=== PATIENT | female | born 1945 | race Caucasian/White ===

== ENCOUNTER 2017-06-10 00:15 | Observation (INO) | payer MEDICARE, OTHER ==
[2017-06-10] MEDS ORDERED: Vistaril 50 MG/ML IM ONE ×2 (00:40→00:45)
--- NOTE | 2017-06-10 00:49 | ERPHSYRPT ---
- History of Present Illness Time Seen by Provider: 06/10/17 00:22 Source: patient Patient Subjective Stated Complaint: Pt reports that she was line dancing tonight and started experiencing nausea approx 1999. Pt reports that approx 2129 she started experiencing a numbness feeling in her left jaw that went down her left arm. Denies chest pain or shortness of breath. Reports that she had some NTG at home so she took one and it relieved the numb feeling. Pt denies numbness or tingling at present. Triage Nursing Assessment: Pt alert, oriented, answers all questions appropriately. Skin pink, warm, dry. Resps non-labored. Pt ambulatory to tx room , steady gait noted. EKG at triage - sinus rhythm. Physician History: CC: tingling Hx: 72 y/o patient of Dr Yannick Peguero. She was doing her normal line dancing tonite and had unusual nausea start around 8PM. She felt poorly and was a little anxious. At home around 9:30 she reports tingling in left upper chest, neck and shoulder to her left arm and later to her left leg. No pain. No discomfort. No cough. No shortness of breath. No fever or chills. She has no hx of heart disease. She had prior normal test for vascular occusion. Timing/Duration: today Allergies/Adverse Reactions: budesonide [From Symbicort] Allergy (Intermediate, Verified 06/10/17 00:35) Swelling of Face formoterol [From Symbicort] Allergy (Intermediate, Verified 06/10/17 00:35) Swelling of Face Penicillins Allergy (Intermediate, Verified 06/10/17 00:35) Home Medications: Albuterol Sulfate [Ventolin Hfa] 18 gm IH DAILY 06/10/17 [History] Umeclidinium Brm/Vilanterol Tr [Anoro Ellipta 62.5-25 Mcg INH] 1 each IH DAILY 06/10/17 [History] Hx Influenza Vaccination/Date Given: Yes Hx Pneumococcal Vaccination/Date Given: Yes Immunizations Up to Date: Yes - Review of Systems Constitutional: Malaise, No Fever, No Chills Eyes: No Symptoms Ears, Nose, & Throat: No Symptoms Respiratory: No Cough, No Dyspnea Cardiac: No Chest Pain, No Edema Abdominal/Gastrointestinal: Nausea, No Abdominal Pain, No Vomiting, No Diarrhea Genitourinary Symptoms: No Symptoms Musculoskeletal: No Symptoms Skin: No Rash Neurological: Parasthesia, No Focal Weakness, No Headache All Other Systems: Reviewed and Negative - Past Medical History Pertinent Past Medical History: Yes Cardiac History: Other Respiratory History: Asthma, COPD Other Medical History: mitral valve prolapse - Past Surgical History Past Surgical History: Yes Gastrointestinal: Appendectomy, Hernia Repair Female Surgical History: Hysterectomy, Tubal Ligation - Social History Smoking Status: Never smoker Exposure to second hand smoke: No Drug Use: none Patient Lives Alone: Yes - Female History Hx Now: No - Nursing Vital Signs Nursing Vital Signs: Initial Vital Signs Temperature 98.0 F 06/10/17 00:30 Pulse Rate 77 06/10/17 00:30 Respiratory Rate 16 06/10/17 00:30 Blood Pressure 185/91 06/10/17 00:30 O2 Sat by Pulse Oximetry 98 06/10/17 00:30 Pain Scale Pain Intensity 0 - Physical Exam General Appearance: alert Eye Exam: PERRL/EOMI Ears, Nose, Throat Exam: normal ENT inspection, moist mucous membranes Neck Exam: normal inspection, non-tender, supple Respiratory Exam: normal breath sounds, lungs clear Cardiovascular Exam: regular rate/rhythm, No murmur Gastrointestinal/Abdomen Exam: soft, No tenderness, No distention, No mass, No guarding Back Exam: normal inspection Extremity Exam: normal inspection, normal range of motion Neurologic Exam: alert, oriented x 3, cooperative, instructor physical II-XII nml as tested, sensation nml, No motor deficits Skin Exam: warm, dry, No rash SpO2 Interpretation: normal SpO2: 98 Oxygen Delivery: Room Air - Course Nursing assessment & vital signs reviewed: Yes EKG Interpreted by Me: RATE (83), Sinus Rhythm, NORMAL AXIS, NORMAL INTERVALS ( QTc 452), NORMAL QRS, NORMAL ST-T - Radiology Exams cxr X-ray Interpretation: Interpreted by me (COPD), No Pneumonia, Nml Mediastinum - CT Exams head CT Interpretation: Negative, Tele-radiologist Report, SVID Ordered Tests: Active Orders 24 hr Category Date Time Status EKG-ER Only STAT Care 06/10/17 00:39 Active IV Insertion STAT Care 06/10/17 00:39 Active NPO (ED) STAT Care 06/10/17 00:39 Active CHEST 1 VIEW (PORTABLE) Stat Exams 06/10/17 00:40 Taken HEAD WITHOUT CONTRAST [CT] Stat Exams 06/10/17 00:40 Ordered CBC W DIFF Stat Lab 06/10/17 00:45 Completed CMP Stat Lab 06/10/17 00:45 Completed PROTIME WITH INR Stat Lab 06/10/17 00:45 Completed PTT Stat Lab 06/10/17 00:45 Completed TROPONIN Q3H Lab 06/10/17 00:45 Completed TROPONIN Q3H Lab 06/10/17 03:45 Ordered TROPONIN Q3H Lab 06/10/17 06:45 Ordered TROPONIN Q3H Lab 06/10/17 09:45 Ordered TROPONIN Q3H Lab 06/10/17 12:45 Ordered Medication Summary Discontinued Medications Generic Name Dose Route Start Last Admin Trade Name Freq PRN Reason Stop Dose Admin Aspirin 162 mg 06/10/17 01:26 06/10/17 01:36 Baby Aspirin 81 Mg Chew PO 06/10/17 01:27 162 mg STAT ONE Administration Hydroxyzine HCl 25 mg 06/10/17 00:40 06/10/17 00:47 Vistaril 50 Mg/Ml IM 06/10/17 00:41 25 mg STAT ONE Administration Hydroxyzine HCl Confirm 06/10/17 00:45 Vistaril 50 Mg/Ml Administered 06/10/17 00:46 Dose 50 mg IM .[employer]-MED ONE Lab/Rad Data: Laboratory Result Diagrams 06/10/17 00:45 06/10/17 00:45 Laboratory Results 06/10/17 06/10/17 06/10/17 Range/Units 00:45 00:45 00:45 WBC (4.0-10.5) K/mm3 RBC (4.1-5.4) M/mm3 Hgb (12.0-16.0) gm/dl Hct (35-47) % MCV (78-100) fl MCH (26-32) pg MCHC (32-36) g/dl RDW (11.5-14.0) % Plt Count (150-450) K/mm3 MPV (6-9.5) fl Gran % (36.0-66.0) % Lymphocytes % (24.0-44.0) % Monocytes % (0.0-12.0) % Eosinophils % (0.00-5.0) % Basophils % (0.0-0.4) % Basophils # (0-0.4) INR 0.92 (0.8-3.0) APTT 29.5 (25.3-37.0) SECONDS Sodium 141 (136-145) mEq/L Potassium 4.0 (3.5-5.1) mEq/L Chloride 103 (98-107) mEq/L Carbon Dioxide 29.5 (21-32) mEq/L Anion Gap 12.2 (5-15) MEQ/L BUN 13 (9-20) mg/dL Creatinine 0.98 (0.55-1.30) mg/dl Estimated GFR 60 ML/MIN Glucose 104 (70-110) MG/DL Calcium 9.8 (8.5-10.1) mg/dL Total Bilirubin 0.40 (0.2-1.0) mg/dL AST 18 (15-37) U/L ALT 20 (12-78) U/L Alkaline Phosphatase 70 (46-116) U/L Troponin I < 0.017 (0.000-0.056) ng/ml Serum Total Protein 6.8 (6.4-8.2) gm/dL Albumin 3.8 (3.4-5.0) g/dL 06/10/17 Range/Units 00:45 WBC 7.3 (4.0-10.5) K/mm3 RBC 4.19 (4.1-5.4) M/mm3 Hgb 13.0 (12.0-16.0) gm/dl Hct 41.0 (35-47) % MCV 97.9 (78-100) fl MCH 31.0 (26-32) pg MCHC 31.7 L (32-36) g/dl RDW 14.2 H (11.5-14.0) % Plt Count 251 (150-450) K/mm3 MPV 9.7 H (6-9.5) fl Gran % 61.0 (36.0-66.0) % Lymphocytes % 27.0 (24.0-44.0) % Monocytes % 10.1 (0.0-12.0) % Eosinophils % 1.5 (0.00-5.0) % Basophils % 0.4 (0.0-0.4) % Basophils # 0.03 (0-0.4) INR (0.8-3.0) APTT (25.3-37.0) SECONDS Sodium (136-145) mEq/L Potassium (3.5-5.1) mEq/L Chloride (98-107) mEq/L Carbon Dioxide (21-32) mEq/L Anion Gap (5-15) MEQ/L BUN (9-20) mg/dL Creatinine (0.55-1.30) mg/dl Estimated GFR ML/MIN Glucose (70-110) MG/DL Calcium (8.5-10.1) mg/dL Total Bilirubin (0.2-1.0) mg/dL AST (15-37) U/L ALT (12-78) U/L Alkaline Phosphatase (46-116) U/L Troponin I (0.000-0.056) ng/ml Serum Total Protein (6.4-8.2) gm/dL Albumin (3.4-5.0) g/dL - Progress Progress Note: 06/10/17 00:49 Pt reports tingling and numbness but she took NTG at home worried about her heart. Symptoms more concerning for cardiac but she did have some tingling in her leg. Will get head CT to rule out ICH. Will proceed with cardiac workup. 06/10/17 01:43 Pt improved with vistaril. ASA given. NIH score 0. She keeps rubbing left upper chest. She seemed uncomfortable. Denies pain. She lives alone and drove herself here. These symptoms began with exertion during line dance. Called Dr Jackson for Tele observation for serial troponins. Discussed with : Manuel Will see patient in: hospital (observation) Counseled pt/family regarding: lab results, diagnosis, need for follow-up, rad results - Departure Time of Disposition: 01:45 Departure Disposition: Observation (Tele) Clinical Impression: Chest pain, rule out acute myocardial infarction Condition: Stable Critical Care Time: No
[2017-06-10 00:56] LABS: BASOPHIL % 0.4 % (0.0-0.4); Eosinophil % 1.5 % (0.00-5.0); Mean Cell Volume 97.9 fl (78-100); Mean Platelet Volume 9.7 fl (6-9.5); Monocytes % 10.1 % (0.0-12.0); Platelet Count 251 K/mm3 (150-450); Red Blood Count 4.19 M/mm3 (4.1-5.4); Red Cell Distribution Width 14.2 % (11.5-14.0); White Blood Count 7.3 K/mm3 (4.0-10.5)
[2017-06-10 01:16] LABS: INR 0.92 (0.8-3.0); PROTIME 10.2 SECONDS (9.95-12.35)
[2017-06-10 01:18] LABS: ALBUMIN 3.8 g/dL (3.4-5.0); ANION GAP 12.2 MEQ/L (5-15); BILIRUBIN,TOTAL 0.4 mg/dL (0.2-1.0); Carbon Dioxide 29.5 mEq/L (21-32); PTT 29.5 SECONDS (25.3-37.0); Total Protein 6.8 gm/dL (6.4-8.2)
[2017-06-10] MEDS ORDERED: BABY ASPIRIN 81 MG CHEW PO ONE (01:26)
[2017-06-10] MEDS ORDERED: PROVENTIL 2.5 MG/3 ML NEB IH PRN (02:12)
[2017-06-10] MEDS ORDERED: TYLENOL 325 MG PO PRN (02:12)
[2017-06-10] MEDS ORDERED: PROVENTIL COMMON CANISTER IH PRN (05:00)
[2017-06-10] MEDS ORDERED: BABY ASPIRIN 81 MG CHEW ONE (06:44)
--- NOTE | 2017-06-10 09:30 | XRAY ---
Indication: Numbness. Left arm and jaw tingling. Comparison: None Portable chest hyperinflated and clear. Heart is not enlarged. Bony thorax intact with mild osteopenia and degenerative changes. Impression: Nonacute hyperinflated chest.
[2017-06-10] MEDS ORDERED: MEDICATION INTERVENTION MC PRN (09:58)
[2017-06-10] MEDS ORDERED: NON-FORMULARY ITEM (Umeclidinium Brm/Vilanterol Tr [Anoro Ellipta 62.5-25 Mcg Inh] 1 EACH) IH SCH (10:00)
[2017-06-10 11:44] VITALS: BP 121/58; PULSE 69; O2SAT 94
--- NOTE | 2017-06-10 14:00 | PCM.DCORD ---
- Discharge Discharge Date: 06/10/17 Disposition: Home, Self-Care Condition: Good Prescriptions: New Aspirin EC 81 mg [Ecotrin 81 mg] 81 mg PO DAILY #30 Continue Umeclidinium Brm/Vilanterol Tr [Anoro Ellipta 62.5-25 Mcg INH] 1 each IH DAILY Albuterol Sulfate [Ventolin Hfa] 18 gm IH DAILY Follow up with: AURELIA RAGLAND [NON-STAFF PHY W/O PRIVILEGES] - 1 Week
--- NOTE | 2017-06-11 10:03 | SSS ---
ADMISSION DIAGNOSES: 1) Chest pain. 2) Left-sided tingling and numbness in her arm and leg. DISCHARGE DIAGNOSES: 1) CHEST PAIN. 2) LEFT-SIDED TINGLING AND NUMBNESS IN HER ARM AND LEG. HISTORY OF PRESENT ILLNESS: This is a 72 year old patient of Dr. Peguero'paradise who presented to the emergency department. She stated that when she was line dancing the night before she had nausea and then felt some tingling on her left jaw and arm and then some in her left leg as well. She reported that she took a Nitro at home. She said she had this left over from years ago from when she was diagnosed with mitral valve prolapse and the Nitro helped but then she continued to have some problems so she decided to come to the emergency department. 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 She reports that she had a cough and she reports this morning she is feeling better and would like to go home. REVIEW OF SYSTEMS: No dyspnea. No abdominal pain. No lower extremity edema. No fever. PAST MEDICAL HISTORY: Mitral valve prolapse, asthma, chronic obstructive pulmonary disease. She sees Dr. Ruiz for chronic obstructive pulmonary disease. She is a lifetime nonsmoker so she is not sure why she has this. PAST SURGICAL HISTORY: She had cataracts removed, tubal ligation, hysterectomy, umbilical hernia repair, appendectomy, bladder surgery. MEDICATIONS: Anoro 1 puff daily, Albuterol 2 puffs every four hours as needed. ALLERGIES: BUDESONIDE, PENICILLIN, FORMOTEROL. SOCIAL HISTORY: She lives alone. No tobacco use. No alcohol use. FAMILY HISTORY: Her mother's side of the family had coronary artery disease and she thinks her father from a stroke. PHYSICAL EXAMINATION: VITAL SIGNS: Temperature current 98.1F, temperature max 98.2F, heart rate 69 to 77, respiratory rate 16 to 20, blood pressure 121 to 185 over 58 to 91 and at the time of discharge 121/58. Oxygen saturation 92 to 98% on room air. GENERAL: The patient is a pleasant talkative lady sitting up in no acute distress. CVS: She has a regular rate and rhythm. No murmurs, gallops or rubs are appreciated. CHEST: Clear to auscultation bilaterally. No crackles or wheezes. ABDOMEN: Soft, nontender, nondistended with normal bowel sounds. SKIN: Warm, dry and intact. EXTREMITIES: No clubbing, cyanosis or edema. LABORATORY DATA AND TESTS: She had five serial troponins that were all negative. BMP within normal limits. CBC within normal limits. Head CT done in the emergency room was read as no acute changes. EKG was sinus rhythm with no ST or T-wave changes. ASSESSMENT AND PLAN: 1) CHEST PAIN: The patient ruled out for acute myocardial infarction. I explained to her that we do have availability of tele-medicine cardiology consult with [facility] which is where her primary care doctor is but she declined this and stated she wanted to go home and follow up with her primary care doctor. She was instructed to take an 81 mg aspirin daily at home and to follow up with her primary care doctor and to return to the emergency room if she had any further chest pain, shortness of breath or any problems. The patient voiced understanding. 2) TINGLING ON THE LEFT SIDE: Again her head CT was negative. She had no neurologic deficits. She was discharged to follow up with her primary care doctor.
== END 2017-06-10 14:50 | disposition home or self-care (01) ==
LOC: ED 00:15 → MED SURG 01:57
PROVIDERS: ADMIT Internal Medicine; ATTEND Internal Medicine
DX: R07.9 Chest pain, unspecified (principal); R20.0 Anesthesia of skin; I34.1 Nonrheumatic mitral (valve) prolapse; J45.909 Unspecified asthma, uncomplicated; J44.9 Chronic obstructive pulmonary disease, unspecified
CPT/HCPCS: 36000; 36415; 71010; 80053; 84484; 85025; 85610; 85730; 93005; 93268; 94760; 96372; 99285; G0378; J3410; A9270-GY